=== PATIENT | male | born 1965 | race Caucasian/White ===

== ENCOUNTER 2020-05-06 14:24 | Inpatient (IN) | payer OTHER ==
[~2020-05-06] VITALS: Ht 175.3 cm; Wt 164.4 kg
--- NOTE | ~2020-05-06 | DS ---
[facility] [address], [place] [address] Draft ADMISSION DATE: 05/06/2020 DISCHARGE DATE: 05/08/2020 REASON FOR ADMISSION: This morbidly obese and healthy 54-year-old man presented to the emergency room with tenderness and pain in his right perineum, is found to have an abscess. He is admitted for further evaluation and care. PERTINENT PHYSICAL EXAMINATION: Morbidly obese, plethoric white man, not systemically toxic. He showed a normal respiratory excursion, somewhat diminished, quite markedly obese abdomen. Right groin showed an erythematous eruption of the groin crease in the groin crease itself consistent with tinea crura. The left side had minimal similar findings in the perineum and medial thigh and the scrotal area or at least cephalad to it was a 3 to 4 cm area of firmness and excoriation of the skin with possible minimal drainage. There is mild local tenderness. It did not appear consistent with Francisco gangrene, but was consistent with abscess. He is admitted for further evaluation and care. LABORATORY STUDIES: Showed white count 9.1. Chem profile normal. Glucose 327. Liver enzymes normal. HOSPITAL COURSE: He was admitted to the hospital, given intravenous antibiotic Rocephin. Consultation undertaken with the Hospitalist Service regarding diabetes control. This was provided by Dr. Breaux. On May 07, 2020, he underwent incision and drainage of the abscess with placement of 2 yellow vessel setons. Gram stain and cultures were obtained. He was changed to oral antibiotic, Flagyl and Bactrim. He did well with this, had marked improvement, and by day of discharge, he was feeling much improved. The long-term plan is to see him back in the office in about 2 weeks to remove the drains. He is instructed to do sitz baths at least b.i.d. and after bowel movement. He does have a bathtub in his home. He is to avoid driving while taking opiates. It is noted that he has a longstanding large prescription for Vicodin. DISCHARGE MEDICATIONS: 1. Bactrim DS one p.o. b.i.d., #20. 2. Fluconazole 200 mg p.o. daily, #7. PATIENT NAME: ORLIN CATALAN DISCHARGE SUMMARY DATE OF : 69 REPORT #: [id number] PHYSICIAN: VELMA TANNER MD PCP: JOSE SOTO REPORT IS CONFIDENTIAL AND NOT TO BE RELEASED WITHOUT AUTHORIZATION [facility] [address], [place] [address] Draft 3. Flagyl 250 mg p.o. t.i.d., #20. 4. Hydrocodone/Tylenol 10/325 one p.o. q.4 hours as needed for pain, #6 or Tylenol plain 1000 mg p.o. q.8 hours, #30. He will resume his usual medications of: 1. Lasix 20 mg daily. 2. Lovenox 40 mg p.o. daily. 3. Metformin 1000 mg p.o. b.i.d. 4. Omeprazole 20 mg p.o. daily. 5. Potassium chloride 20 mEq p.o. daily. 6. Temazepam 30 mg p.o. at bedtime. 7. Glipizide 10 mg p.o. b.i.d. 8. Meloxicam one tablet p.o. as needed for orthopedic pain. 9. NovoLog insulin 12 units subcu t.i.d. before meals. 10. Phentermine 37.5 mg p.o. daily. 11. Zofran rapid dissolving tablets 8 mg b.i.d. as needed for nausea. DISCHARGE DIAGNOSES: 1. Right perineal abscess. 2. Morbid obesity. 3. Diabetes mellitus. 4. Chronic opiate use. 5. Tinea crura, right side and left side. FOLLOWUP PLANS: He will return to see me in approximately 2 weeks as described. MD LUIS FERNANDO Dennis/SAMIRAL /[id number] cc: Jose Soto Copies: JOSE SOTO PATIENT NAME: ORLIN CATALAN DISCHARGE SUMMARY DATE OF : 69 REPORT #: [id number] PHYSICIAN: VELMA TANNER MD PCP: JOSE SOTO REPORT IS CONFIDENTIAL AND NOT TO BE RELEASED WITHOUT AUTHORIZATION [facility] [address] [place], [place] [address] Draft ~ PATIENT NAME: ORLIN CATALAN DISCHARGE SUMMARY DATE OF : 69 REPORT #: [id number] PHYSICIAN: VELMA TANNER MD PCP: JOSE SOTO REPORT IS CONFIDENTIAL AND NOT TO BE RELEASED WITHOUT AUTHORIZATION
[~2020-05-06 14:24] MED LIST: ALBUTEROL SULF8.5 GM INH; CYCLOBENZAPRINE10 MG PO; FUROSEMIDE20 MG PO; GLIPIZIDE XL10 MG PO; HYDROCODON-ACE1 EAC8 PO; LEVEMIR FL100 UNIT/2 SQ; LISINOPRIL20 MG PO; LOVASTATIN40 MG PO; METFORMIN HCL1000 MG PO; NAPROXEN500 MG PO; NORTRIPTYLINE H25 MG PO; NOVOLOG FL100 UNIT/1 SUB-Q; NOVOLOG100 UNIT/1 SUB-Q; OMEPRAZOLE20 MG PO; POTASSIUM CHLO20 ME1 PO; PROAIR HFA8.5 GM INH; SENOKOT8.6 MG PO; SOLIQUA 100 UNIT3 ML SQ; TEMAZEPAM30 MG PO
--- OUTSIDE RECORDS SUMMARY | 2020-05-06 14:28 | XMS ---
PreManage Notification: ORLIN CATALAN Security Engineering Operator Events No recent Security Events currently on file CRITERIA MET - [facility] - [facility] - 2 Visits in 30 Days CARE PROVIDERS Christophe Guy Record Center Specialist/Shade Bander 07/23/2019-Current PHONE: [phone] Bridgette Gonzalez Community Health Worker 11/25/2019-Current PHONE: [phone] NICOLE JUSTIN Internal Medicine 09/24/2016-Current PHONE: Unknown Jatinder has no Care Guidelines for this patient. E.D. VISIT COUNT (12 MO.) 6 [facility] [address] [facility] [place] TOTAL 7 NOTE: Visits indicate total known visits. ED/UCC VISIT TRACKING (12 MO.) 05/06/2020 14:[address] [facility] [place] TYPE: Emergency COMPLAINT: - FLANK PAIN 04/25/2020 18:36 [facility] [place] TYPE: Emergency DIAGNOSES: - Unspecified abdominal pain - ABD PAIN 11/25/2019 09:51 [facility] [place] TYPE: Emergency DIAGNOSES: - Schizophrenia, unspecified - Other stimulant use, unspecified with stimulant-induced psychotic disorder, unspecified - MENTAL HEALTH 08/24/2019 09:51 [facility] [place] TYPE: Emergency DIAGNOSES: - POSSIBLE OD 08/23/2019 23:20 [facility] [place] TYPE: Emergency DIAGNOSES: - SHORTNESS OF BREATH 08/08/2019 09:57 [facility] [place] TYPE: Emergency DIAGNOSES: - ABD PAIN - Unspecified adverse effect of drug or medicament, initial encounter - Right lower quadrant pain - Fatty (change of) liver, not elsewhere classified 05/22/2019 14:57 [facility] [place] TYPE: Emergency DIAGNOSES: - DIZZINESS HEADACHE - Cellulitis, unspecified - Nausea - Headache INPATIENT VISIT TRACKING (12 MO.) No inpatient visits to display in this time frame [email or web address]
--- NOTE | 2020-05-06 19:00 | NUR ---
New admit to the floor. Pt arrived to unit alert and oriented x4. Patient oriented to room and call light. Toradol 30mg ivp admin for reports of 8/10 right groin pain.
--- NOTE | 2020-05-06 19:15 | NUR ---
SHIFT REPORT RECEIVED FROM CHERYLE PATEL AT BEDSIDE. PT AWAKE AND RESTING IN BED. SMALL ABCESS NOTED TO RIGHT PERIANAL, WHITE/SEROUS DRAINAGE NOTED. BOTH LEFT AND RIGHT PERIANAL AREA EXCORIATED AND RED. PT DENIES ADDITIONAL NEEDS, BOARD UPDATED. CALL LIGHT IN REACH.
--- NOTE | 2020-05-06 20:24 | NUR ---
CALL LIGHT ANWERED. pt DROPPED ICE WATER OFF TABLE, ADDITIONAL ICE WATER PROVIDED. pt STATES "I'M STILL IN A LOT OF PAIN". RATES PAIN 8/10 IN RIGHT LEG. PRIMARY RN NOTIFIED. IVF INFUSING WNL ORDERED. CALL LIGHT IN REACH.
--- NOTE | 2020-05-06 20:45 | NUR ---
PT REPORTING INCREASING PAIN 8/10 TO RLE, ALSO REPORTS CHRONIC BACK AND HIP PAIN. PT TAKES 1 NORCO 10-[address] TANNER MADE AWARE OF ABOVE INFORMATION. NEW TELEPHONE ORDERS READ BACK FOR 10-325 NORCO Q4H AND 2-6MG IV MORPHINE Q30 MINUTES FOR PAIN. [place] MAKER BAILEY TO PLACE ORDERS IN EMAR. ASSESSMENT COMPLETE, SCHEDULED MEDS AND PRN NORCO GIVEN (SEE EMAR). NO CHANGE TO ABCESS, SITE CLEANED WITH WATER AND ABD PAD IN PLACE FOR DRAINAGE COLLECTION. WILL MONITOR. NO FURTHER NEEDS, CALL LIGHT IN REACH.
--- NOTE | 2020-05-06 21:49 | NUR ---
CALL LIGHT ON, [facility], PT DENIES FURTHER NEEDS AT THIS TIME
--- NOTE | 2020-05-06 23:10 | NUR ---
IN ROOM TO ROUND ON PT. PT RESTING IN BED WITH EYES CLOSED. RESPIRATIONS EVEN AND UNLABORED. NO DISTRESS NOTED. IV FLUIDS INFUSING. CALL LIGHT IN REACH.
--- NOTE | 2020-05-06 23:35 | NUR ---
IN RM TO ASST PT UP TO VOID PER RN, NEW GOWN ON PT, PUDDING PROVIDED TO PT, PT INFORMED TO HAVE IT BEFORE MIDNIGHT PER NPO @ 0000 STATUS, NO FURTHER NEEDS AT THIS TIME
--- NOTE | 2020-05-07 00:10 | NUR ---
PT NPO AT THIS TIME. CALL LIGHT IN REACH.
--- NOTE | 2020-05-07 02:36 | NUR ---
ASSESSMENT COMPLETE, NO NEW CHANGES OR CONCERNS. VSS, I&O'S COMPLETE. PT REMAINS NPO. DENIES NAUSEA. IV FLUIDS INFUSING, SITE WNL. PT DENIES NEED TO VOID. CALL LIGHT IN REACH.
--- NOTE | 2020-05-07 05:44 | NUR ---
NEW BAG IV FLUIDS HUNG AND INFUSING, SITE WNL. PT DENIES NEED TO VOID, WILL MONITOR. PT DENIES PAIN AND REPORTS BEING "COMFORTABLE". NO FURTHER NEEDS, CALL LIGHT IN REACH.
--- NOTE | 2020-05-07 05:46 | NUR ---
IN RM WITH RN TO GET VITALS, NO FURTHER NEEDS AT THIS TIME
--- NOTE | 2020-05-07 06:40 | NUR ---
IN RM TO GET PT UP TO VOID, PT ABLE TO VOID, NOW BACK IN BED, NO FURTHER NEEDS AT THIS TIME
--- NOTE | 2020-05-07 06:54 | NUR ---
PT HAD A GOOD NIGHT, SLEPT WELL THIS SHIFT. VSS, PT SBA IN ROOM. CALLS APPROPRIATELY. PAIN CONTROLLED WITH PRN NORCO. NPO FOR SURGERY, NO NAUSEA REPORTED. IV FLUIDS, SITE WNL.
--- NOTE | 2020-05-07 07:32 | NUR ---
Pt resting in bed, respirations even and non labored. Patient has no needs at this time. Personal supplies and call light within reach.
--- NOTE | 2020-05-07 07:45 | NUR ---
PATIENT SLEEPING. WHITE BOARD UPDATED. CALL LIGHT WITHIN REACH. NO OTHER NEEDS AT THIS TIME
[2020-05-07] MEDS ORDERED: GLIPIZIDE10 MG PO (07:57)
[2020-05-07] MEDS ORDERED: MELOXICAM15 MG PO (07:57)
[2020-05-07] MEDS ORDERED: BASAGLAR K100 UNIT/1 SUB-Q (07:58)
[2020-05-07] MEDS ORDERED: NOVOLOG FL100 UNIT/1 SUB-Q (07:59)
[2020-05-07] MEDS ORDERED: HYDROCODON-ACE1 EAC8 PO (07:59)
--- NOTE | 2020-05-07 08:41 | NUR ---
tORADOL 30MG IVP ADMIN FOR REPORTS OF 7/10 RIGHT GROIN PAIN.
--- NOTE | 2020-05-07 09:31 | NUR ---
PATIENT RESTING IN BED. VITAL SIGNS AND I&O DONE. PATIENT'S BODY WITH WIPE DOWN WITH SURGICAL WIPES. PATIENT USING A CLEAN GOWN. CALL LIGHT WITHIN REACH. NO OTHER NEEDS AT THIS TIME
--- NOTE | 2020-05-07 11:14 | NUR ---
Pt resting in bed, alert and oriented x4. Patient reports right groin pain has improved. Patient has no needs. Personal supplies and call light within reach.
--- NOTE | 2020-05-07 12:30 | NUR ---
Spoke with Michael, he lives in [place] in an apartment without steps. [employer] for DME. States his abcess hurts. He has a state paid cg, (step daughter) that has 32 hours/mo from the state. He has other adult children who will assist. His only concern is to get his car home as he drove himself. Denies other needs. Plans on dc to home. He is calling his daughter to transport his car to home.
--- NOTE | 2020-05-07 13:11 | EKG ---
[facility] [address] [facility] [place], [place] [address] Signed Normal sinus rhythm Left axis deviation Abnormal ECG When compared with ECG of 20-APR-2018 12:43, No significant change was found Confirmed by TODD SUAREZ DO ([id number]) on 05/07/2020 1:11:42 PM Electronically Signed By: TODD SUAREZ DO 05/07/20 1311 PATIENT NAME: ORLIN CATALAN Electrocardiogram DATE OF : 69 PHYSICIAN: TODD SUAREZ DO REPORT #: [id number] REPORT IS CONFIDENTIAL AND NOT TO BE RELEASED WITHOUT AUTHORIZATION
--- NOTE | 2020-05-07 13:52 | NUR ---
Pt left unit for surgery.
--- NOTE | 2020-05-07 13:53 | NUR ---
PATIENT IN SURGERY. I&O DONE. NO OTHER NEEDS AT THIS TIME
--- NOTE | 2020-05-07 16:25 | HP ---
[facility] [address], [place] [address] Signed ADMISSION DATE: 05/06/2020 TIME: 5:37 p.m. REASON FOR ADMISSION: Right inner thigh/perineal abscess. HISTORY OF PRESENT ILLNESS: This morbidly obese 54-year-old white man underwent right inguinal hernia repair by Dr. Levon Morin a few years ago. The patient has significant morbid obesity and self describes issues attendant to his repair that were pulmonary in nature related to his anesthesia. For the past 2 days, he has had increasing pain in the right groin area in the inner thigh area. He has no pain and particularly where his prior hernia repair was performed. He presented to the emergency room where he was evaluated by Dr. Ruiz, who found him to have what appeared to be an abscess in the right perineum and in groin. The patient has a long-standing problem of right inguinal "rash," which likely represents a tinea problem. Evaluation in the emergency room showed him to have an area of some fluctuance, surrounding erythema, and local tenderness in addition to the right groin tinea infection. He is admitted for further evaluation and care as he recently ate and it would be unsuitable for an anesthetic, particularly given his morbid obesity and other issues. PAST MEDICAL HISTORY: Does include diabetes mellitus as well as hypertension. He smokes one-half pack cigarettes a day. SOCIAL HISTORY: He has no children. He lives alone. His girlfriend committed suicide a month ago he says. He does not work. He is considered "disabled due to back pain problems." REVIEW OF SYSTEMS: He denies any shortness of breath or chest pain. He has had no dyspnea particularly. He has no fever or chills. PHYSICAL EXAMINATION: GENERAL: A markedly plethoric white man, who looks to not be systemically toxic at this time. NECK: Shows no sign of jugular venous distention. Electronically Signed By: VELMA TANNER MD 05/07/20 1625 PATIENT NAME: ORLIN CATALAN HISTORY AND PHYSICAL DATE OF : 69 REPORT #: [id number] PHYSICIAN: VELMA TANNER MD PCP: JOSE SOTO REPORT IS CONFIDENTIAL AND NOT TO BE RELEASED WITHOUT AUTHORIZATION [facility] [address], [place] [address] Signed CHEST: Shows normal respiratory excursion. Somewhat diminished. ABDOMEN: Quite markedly obese. Examination of the right groin shows an erythematous eruption in the groin crease consistent with tinea. The left side has only minimal amount of similar findings. In the perineum, the medial thigh, scrotal area has a 3-4 cm area of firmness and some excoriation of the skin. It appears to have been possible spontaneous drainage to some degree. There is mild local tenderness. He does not have findings consistent with Francisco's gangrene. LABORATORY STUDIES: Show white count of 9.1, hematocrit of 45.5, platelets 280,000. Chem profile shows normal electrolytes. Glucose elevated at 327. Liver enzymes normal. Review of chart shows his operation on February 21, 2015, accompanied by a postoperative respiratory failure requiring re-intubation and ventilator support for 24 hours. He ultimately was extubated without problem. ASSESSMENT AND PLAN: The patient has a right perineal abscess that is very unlikely to be related to the inguinal hernia in the past. The groin incision is well away from this area of infectious activity. This is in the setting of his morbid obesity, perpetual smoking, hypertension, and other comorbidities including what appears to be a right groin tinea infection. I have recommended admission to the hospital, IV antibiotics, moist heat to the area in question, anticipate incision and drainage tomorrow with an empty stomach. As he does have prior history of intolerance of his intubation and so forth for hernia repair, a regional anesthetic may be possible or barring that possibly local with IV sedation for drainage of this abscess. I discussed this with the patient in detail and he concurs. MD LUIS FERNANDO Dennis/MODL /[id number] cc: Jose Soto Electronically Signed By: VELMA TANNER MD 05/07/20 1625 PATIENT NAME: ORLIN CATALAN HISTORY AND PHYSICAL DATE OF : 69 REPORT #: [id number] PHYSICIAN: VELMA TANNER MD PCP: JOSE SOTO REPORT IS CONFIDENTIAL AND NOT TO BE RELEASED WITHOUT AUTHORIZATION [facility] [address] [facility] [place] [address] Agustín Morin MD Copies: JOSE SOTO ANDREW L MD ~ Electronically Signed By: VELMA TANNER MD 05/07/20 1625 PATIENT NAME: ORLIN CATALAN HISTORY AND PHYSICAL DATE OF : 69 REPORT #: [id number] PHYSICIAN: VELMA TANNER MD PCP: JOSE SOTO REPORT IS CONFIDENTIAL AND NOT TO BE RELEASED WITHOUT AUTHORIZATION
--- NOTE | 2020-05-07 16:32 | NUR ---
05/07/20 1632 Kimberli Nicholson 1559 PT ARRIVED IN PACU SLEEPY WITH NO C/O'S. BLOOD SUGAR 225 ON ARRIVAL. 1615 SITTING UP IN BED TALKING TO STAFF. 1625 SIPPING ON WATER. NO C/O'S.
--- NOTE | 2020-05-07 17:05 | NUR ---
[place]. Arrived to unit alert and oriente x4, answers all questions appropriately. Pt denies pain. Spinal resolving, at L2 approx. CMS intact. Right groin dressing is CDI. Per report, loop drain and packing inside wound; unable to see d/t dressing. Pt's vss. Bed alarm intact. IV fluids started per provider order. Cpox intact, sat level of 97% on room air, respirations are even and non labored. Oriented pt to room and call light. Pt denies needs at this time. Call light within reach.
--- NOTE | 2020-05-07 17:52 | NUR ---
Patient doing well, a&ox4. Pt reports full sensations to lower ext's, CMS intact. Dressing to right groin unchanged, CDI. Pt reports he is starting to have a bit of pain, 2/10 level. Patient's vss, cpox reading 95%. No needs. at this time. Call light within reach. Fresh water and jello provided.
--- NOTE | 2020-05-07 17:57 | NUR ---
[place] 10/325mg po admin for reports of 5/10 right groin pain.
--- NOTE | 2020-05-07 18:54 | NUR ---
Pt a&ox4, on ra, respirations even and non labored. Pt tolerated dinner well. VSS, cpox intact and reading 98%. Pt reports right groin pain is tolerable at this time, dressing remains CDI. Pt has no needs. Personal supplies and call light within reach.
--- NOTE | 2020-05-07 19:15 | NUR ---
REPORT RECEIVED FROM DAY SHIFT RN. PT LYING IN BED ALERT AND ORIENTED. IVF INFUSING. CPOX IN PLACE. SpO2 95% ON RA. DRESSING TO GROIN AREA INTACT WITH SMALL AMOUNT OF SEROSANG DRAINAGE. PT DENIES PAIN OR NAUSEA. SNACK PROVIDED PER REQUEST. NO FURTHER NEEDS. WHITE BOARD UPDATED. CALL LIGHT IN REACH.
--- NOTE | 2020-05-07 20:45 | NUR ---
EVENING ASSESSMENT COMPLETE. SCHEDULED MEDS ADMINISTERED PER EMAR. SLIDING SCALE INSULIN PER ORDER. PT DENIES NAUSEA AND REPORTS PAIN IS TOLERABLE AT THIS TIME. CPOX IN PLACE. SpO2 93-95% ON RA. HR 70'S. RESPIRATIONS EVEN AND UNLABORED. DRESSING TO RIGHT GROIN UNCHANGED. IVF INFUSING PER ORDER. PT DENIES QUESTIONS OR CONCERNS AT THIS TIME. CALL LIGHT IN REACH.
--- NOTE | 2020-05-07 21:38 | NUR ---
IV PUMP ALARMING. IV ANTIBIOTIC COMPLETE. IV FLUIDS BACK TO CONTINUOUS FLUIDS FLUSHED WNL AND INFUSING ORDERED.
--- NOTE | 2020-05-07 23:06 | NUR ---
PT UP TO BR WITH SBA TO VOID 700ML. BACK TO BED, DEBRA WELL. DRESSING TO RIGHT GROIN INTACT. PRN ADMINISTERED FOR 8/10 GROIN/BACK/KNEE PAIN. NO FURTHER NEEDS AT THIS TIME. CALL LIGHT IN REACH.
--- NOTE | 2020-05-08 00:13 | NUR ---
IV IN RIGHT AC LEAKING AND BOTHERING PT DUE TO LOCATION. IV DC'D WNL. TIP INTACT. NEW 20G IN LEFT FOREARM PLACED BY SRIKANTH BULLOCK. PT DEBRA WELL. IVF RESUMED AT ORDERED RATE.
--- NOTE | 2020-05-08 00:42 | NUR ---
ROUNDED ON pt. SNORING, EYES CLOSED, RESPIRATIONS REGULAR. CALL LIGHT WITHIN REACH.
--- NOTE | 2020-05-08 02:43 | NUR ---
IN TO DO VITALS. ASSESSMENT DONE. UNABLE TO VISUALIZE JHON AREA AT THIS TIME. pt WILL CALL WHEN HE NEEDS TO GET UP. RATED PAIN 8/10 REFUSED PRN PAIN MEDS. PROVIDED FRESH WATER. CALL LIGHT WITHIN REACH.
--- NOTE | 2020-05-08 05:46 | NUR ---
CALL LIGHT ON. pt UP TO VOID. PACKING FELL FROM WOUND. SS DRAINAGE NOTED ON GAUZE. ENCOURAGED SITZ BATH. pt WILL NEXT TIME HE IS UP. LOOP DRAINS VISUALIZED. WOUND RECOVERED WITH GAUZE AND TAPE. VITALS DONE. CALL LIGHT WITHIN REACH.
--- NOTE | 2020-05-08 07:48 | NUR ---
Pt resting in bed on right side, respirations even and non labored. Pt has no notable distress. Patient has no needs at this time. Personal supplies and call light within reach.
--- NOTE | 2020-05-08 10:00 | NUR ---
Spoke with Michael. He denies co, states heis painful if his wound is touched. Denies needs, no change in plan for dc.
--- NOTE | 2020-05-08 10:27 | NUR ---
Pt a&ox4, respirations even and non labored. Pt reports pain to right groin is tolerable. Right groin gauze dressing removed per provider order; moderate amount of sarosang drainage noted to dressing. Patient up to bathroom this am, sitz bath provided, pt tolerated well. Patient reports he would like to discharge home as he is feeling "much better". Call light within reach. IV LR @85ml/hr infusing without difficulty.
[2020-05-08] MEDS ORDERED: PHENTERMINE H37.5 M1 PO (11:55)
[2020-05-08] MEDS ORDERED: ONDANSETRON ODT8 MG PO (11:56)
[2020-05-08] MEDS ORDERED: GERI-KOT8.6 MG PO (11:56)
--- NOTE | 2020-05-08 11:58 | NUR ---
MED REC COMPLETE
--- NOTE | 2020-05-08 13:20 | NUR ---
Spoke with Dr. Root, pt will dc to home today. His family will transport him home. Pt. denies needs for dc. Pt has step daughter who lives near and is his state paid cg.
--- NOTE | 2020-05-08 14:58 | NUR ---
Patient assisted to the bathroom; SBA, tolerated well. Right groin wound bed unchanged, loop drains visible, scant sarosang drainage noted. Patient reports he is doing well, tolerating his diet, voiding q/s and has reported minimal pain. Pt has no needs at this time. Personal supplies and call light within reach.
[2020-05-08] MEDS ORDERED: FLUCONAZOLE200 MG PO (15:10)
[2020-05-08] MEDS ORDERED: METRONIDAZOLE250 MG PO (15:10)
[2020-05-08] MEDS ORDERED: HYDROCODON-ACE1 EAC8 PO (15:11)
[2020-05-08] MEDS ORDERED: ACETAMINOPHEN500 MG PO (15:12)
[2020-05-08] MEDS ORDERED: SULFAMETHOXAZO1 EAC1 PO (15:12)
--- NOTE | 2020-05-08 15:35 | OR ---
[facility] [address], [place] [address] Signed DATE OF OPERATION: 05/07/2020 SURGEON: Velma Tanner MD PREOPERATIVE DIAGNOSES: 1. Right perineal/groin abscess. 2. Multiple medical comorbidities (morbid obesity, BMI of greater than 50, diabetes, smoking). 3. Sleep apnea syndrome. POSTOPERATIVE DIAGNOSES: 1. Right perineal/groin abscess. 2. Multiple medical comorbidities (morbid obesity, BMI of greater than 50, diabetes, smoking). 3. Sleep apnea syndrome. PROCEDURES: 1. Exam under anesthesia. 2. Incision and drainage and debridement of right perineal/groin abscess. 3. Placement of yellow vessel loop seton x2. ANESTHESIA: Spinal with IV sedation Velma Malone CRNA INDICATIONS: This 54-year-old morbidly obese white man is a patient of Jose Soto of [place]. Indeed, the patient lives in [place], [place]. He has had several days of increasing pain in the right groin area directly opposite from the inner thigh itself, not particularly on the scrotum, but higher than that. I would consider it inguinal or perineal essentially. Examination shows there to be firm and dense infection. He had just eaten prior to his evaluation in the emergency room last night and therefore was admitted given intravenous antibiotic Rocephin anticipating incision and drainage and debridement today. The patient has a significant past history in 2014, having undergone right inguinal hernia repair by Dr. Morin, having immediate postoperative respiratory failure requiring intubation and prolonged ventilation. On that basis, an alternative anesthetic approach was anticipated for drainage of this abscess. The risks of bleeding, infection, recurrence, and so forth were reviewed with him. He understands and wished to proceed. Electronically Signed By: VELMA TANNER MD 05/08/20 1535 PATIENT NAME: ORLIN CATALAN OPERATIVE REPORT DATE OF : 69 REPORT #: [id number] PHYSICIAN: VELMA TANNER MD PCP: JOSE SOTO REPORT IS CONFIDENTIAL AND NOT TO BE RELEASED WITHOUT AUTHORIZATION [facility] [address], [place] [address] Signed FINDINGS: A spinal anesthetic was successfully placed by the compliance review specialist. Intravenous sedation was given as well. He tolerated the anesthesia well. The lesion of the right groin area inferiorly had evidence of spontaneous drainage, though still required incision, drainage, and debridement. Two yellow vessel loops were placed to facilitate postoperative drainage. There was no involvement or any real likelihood. This represented a perirectal abscess or anything having to do with the anal rectum nor was there any sign this was related to previous hernia repair. DESCRIPTION OF PROCEDURE: The patient was brought to the operating room after undergoing a spinal anesthetic, placed in a supine position with a frog-legged position. His extreme pannus and scrotum and so forth were elevated with pink tape allowing for visualization of the perineum and groin area. This area was prepared with a Betadine based solution. Once sterile drape was accomplished, a hemostat was used to probe a small defect of skin in the right groin/perineum. The area was allowed to pass inferiorly and superiorly. It appeared to have a cavity within it. Some purulent material was noted. This was Gram stain and cultured. A counter incision was made superiorly and yellow vessel loop placed and tied into position. With similar technique, the lower aspect was probed and loculations brought down and a counter incision made and a yellow vessel loop seton placed there as well. There was elevation of the yellow vessel loops. The cavity, which had been debrided of some inflammatory soft tissue and so forth was then irrigated copiously with saline solution. Once completely clear and without sign of further loculations to break down or other interventions, plain gauze was applied to the site as was an abdominal dressing and tape. He was ultimately transferred to the stretcher on type device, anticipating further management in recovery room. BLOOD LOSS: Minimal. COMPLICATIONS: None. MD LUIS FERNANDO Dennis/MIRNA /[id number] Electronically Signed By: VELMA TANNER MD 05/08/20 1535 PATIENT NAME: ORLIN CATALAN OPERATIVE REPORT DATE OF : 69 REPORT #: [id number] PHYSICIAN: VELMA TANNER MD PCP: JOSE SOTO REPORT IS CONFIDENTIAL AND NOT TO BE RELEASED WITHOUT AUTHORIZATION [address] [place], [place] [address] Signed cc: [facility] Copies: JOSE SOTO ~ Electronically Signed By: VELMA TANNER MD 05/08/20 1535 PATIENT NAME: ORLIN CATALAN OPERATIVE REPORT DATE OF : 69 REPORT #: [id number] PHYSICIAN: VELMA TANNER MD PCP: JOSE SOTO REPORT IS CONFIDENTIAL AND NOT TO BE RELEASED WITHOUT AUTHORIZATION
== END 2020-05-08 16:32 | disposition home or self-care (01) | DRG 580 ==
LOC: ED 14:24 → MS 17:38
PROVIDERS: ADMIT Surgery; ATTEND Surgery
PROC: 0J9B0ZZ Drainage of Perineum Subcutaneous Tissue and Fascia, Open Approach (ICD-10-PCS; principal; 2020-05-07 14:45)
DX: L02.215 Cutaneous abscess of perineum (principal); Z68.43 Body mass index [BMI] 50.0-59.9, adult; Z20.828 Contact with and (suspected) exposure to other viral communicable diseases; E11.9 Type 2 diabetes mellitus without complications; K21.9 Gastro-esophageal reflux disease without esophagitis; B35.6 Tinea cruris; E66.01 Morbid (severe) obesity due to excess calories; E78.5 Hyperlipidemia, unspecified; I10 Essential (primary) hypertension; J45.909 Unspecified asthma, uncomplicated; G47.30 Sleep apnea, unspecified; F17.210 Nicotine dependence, cigarettes, uncomplicated; Z79.899 Other long term (current) drug therapy; Z79.4 Long term (current) use of insulin; Z91.040 Latex allergy status
CPT/HCPCS: 36415; 80048; 80053; 85025; 93005; 93010; 99284; C9803; J0696; J1100; J1644; J1815; J1885; J2001; J2250; J2405; J2704; J2765; J3010; J7121

== ENCOUNTER 2020-10-11 10:41 | Emergency (ER) | payer OTHER ==
[~2020-10-11] VITALS: Ht 175.3 cm; Wt 156.5 kg
[~2020-10-11 10:41] MED LIST changes: +ACETAMINOPHEN500 MG PO; +BASAGLAR K100 UNIT/1 SUB-Q; +FLUCONAZOLE200 MG PO; +GERI-KOT8.6 MG PO; +GLIPIZIDE10 MG PO; +MELOXICAM15 MG PO; +METRONIDAZOLE250 MG PO; +ONDANSETRON ODT8 MG PO; +PHENTERMINE H37.5 M1 PO; +SULFAMETHOXAZO1 EAC1 PO
[2020-10-11] MEDS ORDERED: NEURONTIN300 MG PO (13:28)
== END 2020-10-11 13:37 | disposition home or self-care (01) ==
LOC: ED 10:41
DX: M79.604 Pain in right leg (principal); M79.605 Pain in left leg; E11.40 Type 2 diabetes mellitus with diabetic neuropathy, unspecified; E66.9 Obesity, unspecified; I10 Essential (primary) hypertension; G47.30 Sleep apnea, unspecified; J45.909 Unspecified asthma, uncomplicated; F17.200 Nicotine dependence, unspecified, uncomplicated; Z91.040 Latex allergy status; Z79.899 Other long term (current) drug therapy; Z79.84 Long term (current) use of oral hypoglycemic drugs
CPT/HCPCS: 80053; 85025; 99283